=== PATIENT | male | born 1990 | race Caucasian/White ===

== ENCOUNTER 2017-11-29 21:01 | Emergency (ER) | payer BC ==
[2017-11-29 21:16] VITALS: RESP 18; TEMP 98.4
[2017-11-29] MEDS ORDERED: ONDANSETRON 4 MG/2 ML VIAL IVP STA (22:10)
[2017-11-29] MEDS ORDERED: KETOROLAC 30 MG/ML 1 ML VIAL IVP STA (22:10)
[2017-11-29] MEDS ORDERED: SODIUM CHLORIDE 0.9% 1,000 ML IV STA (22:10)
--- NOTE | 2017-11-29 22:13 | ED ---
General Adult HPI - General Chief complaint: Nausea/Vomiting/Diarrhea Stated complaint: Abdominal Pain, Nausea Time Seen by Provider: 11/29/17 22:04 Source: patient, RN notes reviewed Mode of arrival: ambulatory Limitations: no limitations - History of Present Illness Initial comments: This is a 27-year-old male who presents to the emergency department with chief complaint of abdominal pain, nausea and vomiting. Patient states that yesterday he had a house warming constitution party and drank a lot of alcohol. He states that this morning he felt nauseous and had some abdominal cramping. He thought that it was because he was hung over. He states that throughout the day today he has had multiple episodes of nausea and vomiting and has developed progressively worsening right upper quadrant abdominal pain. He describes it as a constant ache. He states that he has been unable to eat or drink anything all day and has not urinated. He denies any diarrhea. He does report chills but denies fevers. - Related Data Previous Rx's Medication Instructions Recorded Azithromycin [Zithromax Z-pack] 250 mg PO DIRECTED #6 tab 10/23/14 Allergies Allergy/AdvReac Type Severity Reaction Status Date / Time Penicillins Allergy Unknown Verified 11/29/17 21:16 Childhood Review of Systems ROS Statement: Those systems with pertinent positive or pertinent negative responses have been documented in the HPI. ROS Other: All systems not noted in ROS Statement are negative. Past Medical History Past Medical History: No Reported History History of Any Multi-Drug Resistant Organisms: None Reported Past Surgical History: No Surgical Hx Reported Past Psychological History: ADD/ADHD Smoking Status: Never smoker Past Alcohol Use History: Occasional Past Drug Use History: None Reported General Exam - General Exam Comments Initial Comments: General: Awake and alert, well-developed; in no apparent distress. HEENT: Head atraumatic, normocephalic. Pupils are equal, round and reactive to light. Extraocular movements intact. Oropharynx moist without erythema or exudate. Neck: Supple. Normal ROM. Cardiovascular: Regular rate and rhythm. No murmurs, rubs or gallops. Chest symmetrical. Respiratory: Lungs clear to auscultation bilaterally. No wheezes, rales or rhonchi. Normal respiratory effort with no use of accessory muscles. Abdomen: Soft, non-distended. Tenderness on palpation of right upper quadrant. No rigidity, rebound or guarding. Normal bowel sounds in all 4 quadrants. Musculoskeletal: Normal ROM, no tenderness bilateral upper and lower extremities. Ambulating normally. Skin: [place], warm and dry without rashes or lesions. Neurological: Alert and oriented x3. CN II-XII grossly intact. Speech is fluent and answers are appropriate. No focal neuro deficits. Psychiatric: Normal mood and affect. No overt signs of depression or anxiety noted. Limitations: no limitations Course Vital Signs 11/29/17 11/30/17 21:13 00:09 Temperature 98.4 F Pulse Rate 88 79 Respiratory 18 18 Rate Blood Pressure 158/68 135/70 O2 Sat by Pulse 96 97 Oximetry Medical Decision Making - Medical Decision Making This is a 27-year-old male who presents to the emergency department with chief complaint of right upper quadrant abdominal pain, nausea and vomiting. On physical examination, there is tenderness on palpation of the right upper quadrant. Patient's vital signs are stable. CBC revealed a white count of 14.8 with a left shift at 12.5. INR is 1.2, AST 72, ALT 81, albumin 5.1. Ultrasound of the gallbladder revealed no acute abnormalities. I discussed further evaluation with a computed tomography scan of the abdomen and pelvis. Patient refuses at this time. He does state that he is feeling improved after receiving pain and anti-medic medication. He states that he will return to the emergency department if the pain returns or worsens. Vital signs are stable and patient is in no acute distress. He will be discharged home at this time. All questions answered. - Lab Data Result diagrams: 11/29/17 22:25 11/29/17 22:25 Lab Results 11/29/17 11/29/17 11/29/17 Range/Units 22:25 22:25 22:25 WBC 14.8 H (3.8-10.6) k/uL RBC 6.47 H (4.30-5.90) m/uL Hgb 18.8 H (13.0-17.5) gm/dL Hct 55.3 H (39.0-53.0) % MCV 85.5 (80.0-100.0) fL MCH 29.1 (25.0-35.0) pg MCHC 34.0 (31.0-37.0) g/dL RDW 13.0 (11.5-15.5) % Plt Count 205 (150-450) k/uL Neutrophils % 84 % Lymphocytes % 9 % Monocytes % 5 % Eosinophils % 2 % Basophils % 1 % Neutrophils # 12.5 H (1.3-7.7) k/uL Lymphocytes # 1.3 (1.0-4.8) k/uL Monocytes # 0.7 (0-1.0) k/uL Eosinophils # 0.3 (0-0.7) k/uL Basophils # 0.1 (0-0.2) k/uL PT 11.3 (9.0-12.0) sec INR 1.2 H (<1.2) APTT 24.4 (22.0-30.0) sec Sodium 146 H (137-145) mmol/L Potassium 5.0 (3.5-5.1) mmol/L Chloride 105 (98-107) mmol/L Carbon Dioxide 20 L (22-30) mmol/L Anion Gap 21 mmol/L BUN 21 H (9-20) mg/dL Creatinine 1.20 (0.66-1.25) mg/dL Est GFR (CKD-EPI)AfAm >90 (>60 ml/min/1.73 sqM) Est GFR (CKD-EPI)NonAf 84 (>60 ml/min/1.73 sqM) Glucose 85 (74-99) mg/dL Calcium 10.1 (8.4-10.2) mg/dL Total Bilirubin 1.0 (0.2-1.3) mg/dL AST 72 H (17-59) U/L ALT 81 H (21-72) U/L Alkaline Phosphatase 80 (38-126) U/L Total Protein 8.2 (6.3-8.2) g/dL Albumin 5.1 H (3.5-5.0) g/dL Amylase 95 (30-110) U/L Lipase 83 (23-300) U/L - Radiology Data Radiology results: report reviewed Gallbladder ultrasound impression: Negative gallbladder sonogram. No gallstones or dilated ducts. Disposition Clinical Impression: Abdominal pain Disposition: HOME SELF-CARE Condition: Good Instructions: Acute Nausea and Vomiting (ED), Abdominal Pain (ED) Additional Instructions: Please follow up with primary care provider within 1-2 days. Return to emergency department if symptoms should worsen or any concerns arise. Is patient prescribed a controlled substance at d/c from ED?: No Referrals: Lev Bello MD [Primary Care Provider] - 1-2 days Time of Disposition: 00:26
[2017-11-29 22:37] LABS: Basophils # (A) 0.1 k/uL (0-0.2); Basophils % (A) 1 %; Eosinophils # (A) 0.3 k/uL (0-0.7); Eosinophils % (A) 2 %; HGB 18.8 gm/dL (13.0-17.5); Lymphocytes # (A) 1.3 k/uL (1.0-4.8); Lymphocytes % (A) 9 %; MCH 29.1 pg (25.0-35.0); MCV 85.5 fL (80.0-100.0); Mean Platelet Volume 7.3; Monocytes # (A) 0.7 k/uL (0-1.0); Monocytes % (A) 5 %; Neutrophils # (A) 12.5 k/uL (1.3-7.7); Neutrophils % (A) 84 %; Platelet Count 205 k/uL (150-450); RBC 6.47 m/uL (4.30-5.90); WBC 14.8 k/uL (3.8-10.6)
[2017-11-29 22:42] LABS: HCT 55.3 % (39.0-53.0)
[2017-11-29 22:45] LABS: INR 1.2 (<1.2); Partial Thromboplastin Time 24.4 sec (22.0-30.0); Prothrombin Time 11.3 sec (9.0-12.0)
[2017-11-29 22:49] LABS: ALT 81 U/L (21-72); AST 72 U/L (17-59); Albumin 5.1 g/dL (3.5-5.0); Alkaline Phosphatase 80 U/L (38-126); Amylase 95 U/L (30-110); Anion Gap 21 mmol/L; Blood Urea Nitrogen 21 mg/dL (9-20); Calcium 10.1 mg/dL (8.4-10.2); Carbon Dioxide 20 mmol/L (22-30); Chloride 105 mmol/L (98-107); Glucose 85 mg/dL (74-99); Lipase 83 U/L (23-300); Sodium 146 mmol/L (137-145); Total Protein 8.2 g/dL (6.3-8.2)
--- NOTE | 2017-11-29 23:51 | US ---
EXAMINATION TYPE: US gallbladder DATE OF EXAM: 11/29/2017 COMPARISON: NONE CLINICAL HISTORY: Pain. EXAM MEASUREMENTS: Liver Length: 15.6 cm Gallbladder Wall: 0.2 cm CBD: 0.2 cm Right Kidney: 12.8 x 3.8 x 5.4 cm Pancreas: Obscured by bowel gas, visualized portions wnl Liver: wnl Gallbladder: wnl Evidence for sonographic [place]'s sign: No CBD: wnl as visualized, distal portion obscured by bowel gas Right Kidney: No hydronephrosis or masses seen IMPRESSION: Negative gallbladder sonogram. No gallstones or dilated ducts.
[2017-11-30 00:10] VITALS: BP 135/70; PULSE 79
== END 2017-11-30 00:43 | disposition home or self-care (01) ==
LOC: EC 21:01
DX: R10.11 Right upper quadrant pain (principal); R11.2 Nausea with vomiting, unspecified; Z88.0 Allergy status to penicillin
CPT/HCPCS: 36415; 80053; 82150; 83690; 85025; 85610; 85730; 76705; 99284; 96374; 96375; 96361 ×2; J2405; J1885